=== PATIENT | female | born 1955 | race American Indian/Alaskan Native ===

== ENCOUNTER 2022-05-22 18:48 | Emergency (ER) | payer MEDICARE ==
--- NOTE | 2022-05-22 20:51 | XRay Report ---
RIGHT KNEE 3 VIEWS INDICATION / CLINICAL INFORMATION: Right knee pain/injury after fall. COMPARISON: None available. FINDINGS: BONES and JOINT(S): No acute fracture or subluxation. No significant arthritis. SOFT TISSUES: No significant abnormality. ADDITIONAL FINDINGS: None. IMPRESSION: 1. No acute findings. Signer Name: Tony Guillermo MD Signed: 05/22/2022 8:47 PM Workstation Name: [id number]
[2022-05-22] MEDS ORDERED: ONDANSETRON 4 MG ODT TAB PO ONE (21:18)
[2022-05-22] MEDS ORDERED: oxyCODONE /ACETAMINOPHEN 5-325MG TAB PO ONE (21:18)
[2022-05-22] MEDS ORDERED: KETOROLAC 30 MG/1 ML INJ IM ONE (21:18)
--- NOTE | 2022-05-22 22:21 | Emergency Department Report ---
ED Fall HPI - General Chief Complaint: Fall Stated Complaint: FELL OFF 6FT LADDER/RT KNEE INJURY Source: patient Mode of arrival: Wheelchair - History of Present Illness Initial Comments: Patient is a 67-year-old -[place] female with a history of hypertension and vwa-cfxdyky-zdhkaommt diabetes who presents to the ED with complaint of acute onset persistent right knee pain and swelling after she slipped and fell off a few steps of a ladder about 8 hours ago after completing a painting session at home. Patient states that in the process of falling she twisted her right knee and head "pop" sound and since then she has not been able to bear weight on the right leg because of worsening right knee pain. Patient denies head or neck injuries, back pain, hip pain, chest pain or shortness of breath, headache, nausea and vomiting, numbness and tingling or weakness of lower extremities bilaterally. 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 denies: headache, neck pain, numbness, weakness, chest paint, shortness of breath, abdominal pain, hematuria, unable to walk, lightheaded, vertigo, confusion - Related Data Previous Rx's Medication Instructions Recorded Last Taken Type Ibuprofen [Motrin] 800 mg PO Q8HR PRN #30 tablet 05/22/22 Unknown Rx tiZANidine [Zanaflex 4mg TAB] 4 mg PO Q8H PRN #21 tab 05/22/22 Unknown Rx traMADoL [Ultram] 50 mg PO Q6HR PRN #12 tablet 05/22/22 Unknown Rx Allergies Allergy/AdvReac Type Severity Reaction Status Date / Time Penicillins Allergy Unknown Verified 05/22/22 19:47 ED Review of Systems ROS: Stated complaint: FELL OFF 6FT LADDER/RT KNEE INJURY Other details as noted in HPI Constitutional: denies: chills, fever Eyes: denies: eye pain, eye discharge, vision change ENT: denies: ear pain, throat pain Respiratory: denies: cough, shortness of breath, wheezing Cardiovascular: denies: chest pain, palpitations Endocrine: no symptoms reported Gastrointestinal: denies: abdominal pain, nausea, diarrhea Genitourinary: denies: urgency, dysuria, discharge Musculoskeletal: arthralgia (Right knee pain). denies: back pain, joint swelling Skin: denies: rash, lesions Neurological: denies: headache, weakness, paresthesias Psychiatric: denies: anxiety, depression Hematological/Lymphatic: denies: easy bleeding, easy bruising ED Past Medical Hx - Social History Smoking Status: Unknown if ever smoked - Medications Home Medications: Home Medications Medication Instructions Recorded Confirmed Last Taken Type Ibuprofen [Motrin] 800 mg PO Q8HR PRN #30 tablet 05/22/22 Unknown Rx tiZANidine [Zanaflex 4mg TAB] 4 mg PO Q8H PRN #21 tab 05/22/22 Unknown Rx traMADoL [Ultram] 50 mg PO Q6HR PRN #12 tablet 05/22/22 Unknown Rx ED Physical Exam - General Limitations: No Limitations General appearance: alert, in no apparent distress - Head Head exam: Present: atraumatic, normocephalic, normal inspection - Eye Eye exam: Present: normal appearance, PERRL, EOMI Pupils: Present: normal accommodation - ENT ENT exam: Present: normal exam, normal orophraynx, mucous membranes moist, TM's normal bilaterally, normal external ear exam - Neck Neck exam: Present: normal inspection, full ROM. Absent: tenderness - Respiratory Respiratory exam: Present: normal lung sounds bilaterally. Absent: respiratory distress, wheezes, rales, stridor, chest wall tenderness, accessory muscle use, prolonged expiratory - Cardiovascular Cardiovascular Exam: Present: regular rate, normal rhythm, normal heart sounds. Absent: systolic murmur, diastolic murmur, rubs, gallop - GI/Abdominal GI/Abdominal exam: Present: soft, normal bowel sounds. Absent: tenderness, guarding, rebound, hyperactive bowel sounds, hypoactive bowel sounds, organomegaly - Extremities Exam Extremities exam: Present: normal inspection, tenderness (Palpable right knee tenderness on the medial right knee with mild swelling), normal capillary refill, joint swelling. Absent: full ROM (Limited range of motion of right knee due to pain), pedal edema, calf tenderness - Back Exam Back exam: Present: normal inspection, full ROM. Absent: tenderness, CVA tenderness (R), CVA tenderness (L), muscle spasm, paraspinal tenderness, vertebral tenderness - Neurological Exam Neurological exam: Present: alert, oriented X3, CN II-XII intact, normal gait, reflexes normal - Psychiatric Psychiatric exam: Present: normal affect, normal mood - Skin Skin exam: Present: warm, dry, intact, normal color. Absent: rash ED Course Vital Signs 05/22/22 19:34 Temperature 99.3 F Pulse Rate 70 Respiratory 18 Rate Blood Pressure 171/80 O2 Sat by Pulse 99 Oximetry ED Medical Decision Making - Radiology Data Radiology results: report reviewed, image reviewed [facility] [address] [place] [address] XRay Report Signed Patient: BROOKLYN ROJAS MR#: [id number] 2 : 1955 Acct:[id number] Age/Sex: 67 / F ADM Date: 05/22/22 Loc: ED Attending Dr: Ordering Physician: ED MD JACKELYN Date of Service: 05/22/22 Procedure(s): XR knee 3V RT Accession Number(s): [id number] cc: ED MD JACKELYN Fluoro Time In Minutes: RIGHT KNEE 3 VIEWS INDICATION / CLINICAL INFORMATION: Right knee pain/injury after fall. COMPARISON: None available. FINDINGS: BONES and JOINT(S): No acute fracture or subluxation. No significant arthritis. SOFT TISSUES: No significant abnormality. ADDITIONAL FINDINGS: None. IMPRESSION: 1. No acute findings. Signer Name: Tony Guillermo MD Signed: 05/22/2022 8:47 PM Workstation Name: [id number] Transcribed By: CAROL Dictated By: Tony Guillermo MD Electronically Authenticated By: Tony Guillermo MD Signed Date/Time: 05/22/222046 DD/ 46 TD/TT: - Medical Decision Making This is a 67-year-old -[place] female with a history of hypertension and plc-uqnbneu-spnqorcjl diabetes who presents to the ED with complaint of acute onset persistent right knee pain and swelling after she slipped and fell off a few steps of a ladder about 8 hours ago after completing a painting session at home. Patient states that in the process of falling she twisted her right knee and head "pop" sound and since then she has not been able to bear weight on the right leg because of worsening right knee pain. In the ED, patient is alert and oriented x3 and is not in any distress. Right knee x-ray showed no acute fractures or subluxations. Patient was treated for pain in the ED. Right knee was splinted with Chintan wrap and the patient fitted with crutches. Patient will discharge home on pain medications and advised to follow-up with her primary care physician in 7 to 10 days for reevaluation or return to the ED immediately if symptoms get worse. Patient was also given a referral to the orthopedic surgeon Dr. Rachel Riley for further follow-up. Patient was advised to return to the ED immediately if symptoms get worse. - Differential Diagnosis Knee fracture; ACL injury; MCL injury; knee sprain; knee muscle strain Critical care attestation.: If time is entered above; I have spent that time in minutes in the direct care of this critically ill patient, excluding procedure time. ED Disposition Clinical Impression: Sprain of right knee/leg Qualifiers: Encounter type: initial encounter Qualified Code(s): S83.91XA - Sprain of unspecified site of right knee, initial encounter MCL sprain of right knee Qualifiers: Encounter type: initial encounter Qualified Code(s): S83.411A - Sprain of medial collateral ligament of right knee, initial encounter Muscle strain of right lower extremity Qualifiers: Encounter type: initial encounter Qualified Code(s): S86.911A - Strain of unspecified muscle(s) and tendon(s) at lower leg level, right leg, initial encounter Disposition: 01 HOME / SELF CARE / HOMELESS Is pt being admited?: No Does the pt Need Aspirin: No Condition: Stable Instructions: Muscle Strain, [id number], Elastic Bandage and RICE Therapy, Medial Collateral Knee Ligament Sprain, Knee Sprain, Adult, [id number], Medial Collateral Knee Ligament Sprain, Phase II Rehab-SportsMed, Medial Collateral Knee Ligament Sprain, Phase I Rehab-SportsMed Additional Instructions: Right knee x-ray showed no acute fractures or subluxations. Your injuries are likely musculoskeletal following your fall. Therefore take medications with food, drink plenty of fluids, follow-up with your primary care physician or orthopedic surgeon in 7 to 10 days for reevaluation. Return to the ED immediately if symptoms get worse. Prescriptions: Ibuprofen [Motrin] 800 mg PO Q8HR PRN #30 tablet PRN Reason: Pain , Severe (7-10) traMADoL [Ultram] 50 mg PO Q6HR PRN #12 tablet PRN Reason: Pain tiZANidine [Zanaflex 4mg TAB] 4 mg PO Q8H PRN #21 tab PRN Reason: Muscle Spasm Referrals: FAISAL SAENZ MD [Referring] - 7-10 days [facility] [Provider Group] - 7-10 days Time of Disposition: 22:28 Print Language: LUXEMBOURGER
[2022-05-22 23:19] VITALS: BP 163/76
== END 2022-05-22 23:19 | disposition home or self-care (01) ==
LOC: ED 18:48
DX: S83.91XA Sprain of unspecified site of right knee, initial encounter (principal); W19.XXXA Unspecified fall, initial encounter; Y93.89 Activity, other specified; Y92.89 Other specified places as the place of occurrence of the external cause; Y99.8 Other external cause status
CPT/HCPCS: 29505; 73562; 96372; 99284; J1885; J3490; Q0162